=== PATIENT | male | born 1980 | race Hispanic/Latino ===

== ENCOUNTER 2018-06-16 01:23 | Emergency (ER) | payer OTHER ==
[2018-06-16] MEDS ORDERED: DiphenhydrAMINE HCL 50 MG/ML VIAL ONE (02:16)
[2018-06-16] MEDS ORDERED: KETOROLAC TROMETHAMINE 30MG/ML ONE (02:16)
[2018-06-16] MEDS ORDERED: SODIUM CHLORIDE 0.9% 1000ML 1,000 ML IV ONE (02:16)
[2018-06-16] MEDS ORDERED: ONDANSETRON HCL 4 MG/2 ML VIAL ONE (02:52)
[2018-06-16] MEDS ORDERED: TETANUS/DIPHTHERIA TOXOID [ADULT] 0.5 ML VIAL IM ONE (02:52)
[2018-06-16] MEDS ORDERED: OCTYL 2-CYANOACRYLATE 1 EACH TP ONE (03:42)
== END 2018-06-16 06:16 | disposition home or self-care (01) ==
LOC: EDH 01:23
DX: S02.82XA Fracture of other specified skull and facial bones, left side, initial encounter for closed fracture (principal); S01.112A Laceration without foreign body of left eyelid and periocular area, initial encounter; S90.32XA Contusion of left foot, initial encounter; F41.9 Anxiety disorder, unspecified; Y04.2XXA Assault by strike against or bumped into by another person, initial encounter; Y93.89 Activity, other specified; Y92.89 Other specified places as the place of occurrence of the external cause; Y99.8 Other external cause status
CPT/HCPCS: 12011; 70450; 70486; 73630; 73700; 90471; 90714; 96374; 96375 ×2; 99285; J1200; J1885; J2405; J7030